=== PATIENT | female | born 1935 | race Caucasian/White ===

== ENCOUNTER 2017-05-19 08:51 | Outpatient (CLI) ==
[2016-03-08 16:08] VITALS: BMI 27.5
[2017-05-19] MEDS ORDERED: PROLIA SUBCUT STA (09:14)
[2017-05-19 09:22] VITALS: BP 106/63; TEMP 98.8
== END 2017-05-19 08:52 | disposition home or self-care (01) ==
LOC: OPMED 08:51
PROVIDERS: ATTEND Internal Medicine
DX: M81.0 Age-related osteoporosis without current pathological fracture (principal); Z98.1 Arthrodesis status
CPT/HCPCS: 96372

== ENCOUNTER 2017-11-16 08:43 | Outpatient (CLI) | payer OTHER ==
[2016-03-08 16:08] VITALS: BMI 27.5
[2017-11-16 09:15] VITALS: BP 118/66; TEMP 97.2
[2017-11-16] MEDS ORDERED: PROLIA SUBCUT STA (09:18)
== END 2017-11-16 08:44 | disposition home or self-care (01) ==
LOC: OPMED 08:43
PROVIDERS: ATTEND Internal Medicine
DX: M81.0 Age-related osteoporosis without current pathological fracture (principal); Z87.310 Personal history of (healed) osteoporosis fracture; Z98.1 Arthrodesis status
CPT/HCPCS: 96372

== ENCOUNTER 2017-12-20 09:27 | Inpatient (IN) | payer OTHER ==
[2017-12-20 10:25] VITALS: BMI 27.8
[2017-12-20] MEDS ORDERED: METHOCARBAMOL 750 MG PO SCH (11:30)
[2017-12-20] MEDS ORDERED: VITAMIN D3 PO SCH (11:30)
[2017-12-20] MEDS ORDERED: NON-FORMULARY MEDICATION (Multivitamin 1 TAB) PO SCH (11:30)
[2017-12-20] MEDS ORDERED: IRON PS COMPLEX PO SCH (11:30)
[2017-12-20] MEDS ORDERED: B12 PO SCH (11:30)
[2017-12-20] MEDS ORDERED: POTASSIUM CHLORIDE PO SCH (11:30)
[2017-12-20] MEDS ORDERED: ZOCOR PO SCH (11:30)
[2017-12-20] MEDS ORDERED: CHOLECALCIFEROL PO SCH (11:30)
[2017-12-20] MEDS ORDERED: FOLIC ACID PO SCH (11:30)
[2017-12-20] MEDS ORDERED: CALCIUM CARBONATE PO SCH (11:30)
[2017-12-20] MEDS ORDERED: [UNRECOGNIZED DRUG - OTHER] PO SCH (11:30)
[2017-12-20] MEDS ORDERED: ATROPINE SULFATE PFS IVP PRN (11:32)
[2017-12-20] MEDS ORDERED: MORPHINE 4 MG/ML VIAL IVP PRN (11:32)
[2017-12-20] MEDS ORDERED: VISTARIL INJ IM PRN (11:32)
[2017-12-20] MEDS ORDERED: NITROSTAT SL PRN (11:32)
[2017-12-20] MEDS ORDERED: TYLENOL PO PRN (11:32)
[2017-12-20] MEDS: ROBAXIN PO SCH ×3 (12:28→21:26)
[2017-12-20] MEDS: NEURONTIN PO SCH ×2 (12:29→21:26)
[2017-12-20] MEDS: NIFEREX 150 PO SCH (12:29)
[2017-12-20] MEDS: ANTIVERT PO SCH ×3 (12:30→21:25)
[2017-12-20] MEDS: ZOCOR PO SCH (12:30)
[2017-12-20] MEDS: VITAMIN D PO SCH (12:30)
[2017-12-20] MEDS: MULTIVITAMIN TABLET PO SCH (12:31)
[2017-12-20] MEDS: MICRO-K CAP PO SCH (12:31)
[2017-12-20] MEDS: CALCIUM 500 + VIT D 200 MG TABLET PO SCH (12:32)
[2017-12-20] MEDS: PERCOCET 10-325 PO SCH ×3 (12:38→21:25)
[2017-12-20] MEDS: XANAX PO SCH ×3 (12:38→21:25)
--- NOTE | 2017-12-20 14:19 | DI ---
EXAM: PA and lateral views of the chest HISTORY: Shortness of breath COMPARISON: None FINDINGS: The cardiomediastinal silhouette is normal. There is no pneumothorax or pleural effusion. There is no consolidation, nodule or mass. Lungs are mildly hyperinflated. The osseous structures demonstrate degenerative disease of the spine and interval placement of thoracic and upper lumbar sp ine posterior fusion hardware with a compression fracture at L1. IMPRESSION: 1. No acute consolidation with findings suggestive of chronic obstructive pulmonary disease/emphysem a. 2. Posterior fusion hardware in the lumbosacral spine with compression fracture at L1.
[2017-12-21] MEDS ORDERED: ASPIRIN EC PO SCH (08:00)
[2017-12-21] MEDS: NIFEREX 150 PO SCH (08:09)
[2017-12-21] MEDS: VITAMIN D PO SCH (08:09)
[2017-12-21] MEDS: XANAX PO SCH (08:10)
[2017-12-21] MEDS: MULTIVITAMIN TABLET PO SCH (08:10)
[2017-12-21] MEDS: ZOCOR PO SCH (08:10)
[2017-12-21] MEDS: NEURONTIN PO SCH (08:10)
[2017-12-21] MEDS: CALCIUM 500 + VIT D 200 MG TABLET PO SCH (08:10)
[2017-12-21] MEDS: MICRO-K CAP PO SCH (08:10)
[2017-12-21] MEDS: ANTIVERT PO SCH (08:10)
[2017-12-21] MEDS: ROBAXIN PO SCH (08:11)
[2017-12-21] MEDS: PERCOCET 10-325 PO SCH (08:11)
[2017-12-21] MEDS ORDERED: CARDIZEM PO ONE (10:20)
--- NOTE | 2017-12-21 10:26 | PCM.PROG ---
Attending Provider: ATTENDING PROVIDER: Dr. DANIA LE This patient is seen with Aminah Toussaint, Nurse Practitioner. DATE OF SERVICE: 12/21/17 SUBJECTIVE: This 82 year old WHITE/ F was hospitalized 12/20/17. The patient is lying in bed alert. She was brought in after episode of atrial fibrillation during colonoscopy yesterday. She has been in normal sinus rhythm. She was not experiencing any signs or symptoms of atrial fib. She reports she is feeling well and would like to go home today. REVIEW OF SYSTEMS: CONSTITUTIONAL: No night sweats. No fatigue, malaise, lethargy. No fever or chills. HEENT: Eyes: No visual changes. No eye pain. No eye discharge. ENT: No runny nose. No epistaxis. No sinus pain. No odynophagia. No congestion. RESPIRATORY: No cough, no congestion. No hemoptysis. No shortness of breath. CARDIOVASCULAR: No angina symptoms. No CHF symptoms. No atypical chest pain for CAD. No palpitations. No orthopnea.. GASTROINTESTINAL: No abdominal pain. No nausea or vomiting. No diarrhea or constipation. No hematemesis. No hematochezia. GENITOURINARY: No urgency. No frequency. No dysuria. No hematuria. No obstructive symptoms. No discharge. No pain. No significant abnormal bleeding. MUSCULOSKELETAL: No musculoskeletal pain; no joint swelling. NEUROLOGICAL: Awake, alert, oriented to time, place and person. No headache. No neck pain. No syncope. No seizures. No dizziness. PSYCHIATRIC: Not anxious. No depression. No suicidal thoughts. No homicidal thoughts. SKIN: No rash. No lesions. No wounds. ENDOCRINE: No unexplained weight loss. No weight gain. HEMATOLOGIC/LYMPHATIC: No anemia. No purpura. No petechiae. No prolonged or excessive bleeding. No palpable lymph nodes. PHYSICAL EXAMINATION: GENERAL: The patient is awake, alert and oriented, lying in bed in no distress. VITAL SIGNS: Temperature 98.6 F, Pulse 94, Respiratory Rate 14, BP 115/70, Pulse Ox 99% HEENT: Head normocephalic, atraumatic. Eyes: Extraocular muscles are intact. Pupils are equal, round and reactive to light and accommodation. Ears: No lesions. Nose appeared normal. Throat: No exudate or erythema. NECK: Supple. No JVD, no carotid bruit. No lymphadenopathy or thyromegaly. LUNGS: Diminished breath sounds. Clear to auscultation. Percussion note normal. Chest symmetrical. HEART: S1, S2, no S3. No murmurs. No cyanosis or clubbing. No ascites. Pulses: Dorsalis pedis and posterior tibial pulses +1 to +2 both sides. ABDOMEN: Soft. Non-tender. Bowel sounds active. No CVA tenderness. No mass felt. EXTREMITIES: No edema. Full range of motion of all extremities, equal. NEUROLOGIC: No focal deficit. Cranial nerves II through XII are grossly intact. No headache, no double vision or headache. SKIN: Not dry. Intact. Turgor-normal. LYMPHATIC: No palpable lymph nodes/no lymphedema. MUSCULOSKELETAL: Normal joints with no swelling. Muscle tone is normal. LAB REVIEW: 12/21/17 04:30 12/21/17 04:30 12/21/17 04:30: Sodium 139, Potassium 3.7, Chloride 111 H, Carbon Dioxide 22 L, Anion Gap 9.7, BUN 10, Creatinine 1.08, Estimated GFR (MDRD) 49.00, BUN/ Creatinine Ratio 9.25, Glucose 101, Calcium 8.5, Total Bilirubin 0.3, AST 22, ALT 15, Alkaline Phosphatase 50 L, Total Protein 6.2, Albumin 2.9 L, Globulin 3.3, Albumin/Globulin Ratio 0.88 12/21/17 04:30: WBC 6.41, RBC 3.35 L, Hgb 10.4 L, Hct 32.4 L, MCV 96.7, MCH 31.0 , MCHC 32.1, RDW Coeff of Alverto 15.5 H, Plt Count 200, Neutrophils % (Manual) 44.0 , Lymphocytes % (Manual) 41.0, Monocytes % (Manual) 9.0, Eosinophils % (Manual) 1.0, Reactive Lymphocytes 5.0, Anisocytosis Not present 12/20/17 19:47: Total Creatine Kinase 221, CK-MB (CK-2) 2.5, CK-MB (CK-2) % 1.20723, Troponin I 0.0360 12/20/17 11:45: Thyroxine (T4) 6.1 12/20/17 11:45: Sodium 140, Potassium 4.1, Chloride 110 H, Carbon Dioxide 23, Anion Gap 11.1, BUN 7, Creatinine 1.01, Estimated GFR (MDRD) 52.00, BUN/ Creatinine Ratio 6.93, Glucose 106, Calcium 9.0, Total Bilirubin 0.5, AST 29, ALT 18, Alkaline Phosphatase 55, Total Creatine Kinase 305, CK-MB (CK-2) 3.0, CK -MB (CK-2) % 0.71679, Troponin I 0.0420, Total Protein 7.2, Albumin 3.4, Globulin 3.8, Albumin/Globulin Ratio 0.89, TSH 0.945 12/20/17 11:45: WBC 6.62, RBC 3.78 L, Hgb 11.6 L, Hct 36.0 L, MCV 95.2, MCH 30.7 , MCHC 32.2, RDW Coeff of Alverto 15.5 H, Plt Count 241, Neutrophils % (Manual) 64.0 , Band Neutrophils % 1.0, Lymphocytes % (Manual) 23.0, Monocytes % (Manual) 10.0 , Eosinophils % (Manual) 1.0, Plt Morphology Comment Normal, Anisocytosis Not present, RBC Morph Comment Normal ASSESSMENT: 1. EPISODE OF ATRIAL FIBRILLATION WITH RVR 2. ANEMIA PLAN: 1. Echocardiogram 2. Holter monitor 3. Possible discharge Plan and coordination of the patient's care discussed in the presence of Residential Gas Heat Technician and nurse. CONDITION: Stable SCRIBED BY: SANDRITA REVELES Triage Register Nurse scribed while in presence of service performed by Dr. Le/Aminah Toussaint APRN on 12/21/17 ([id number])
[2017-12-21 13:49] VITALS: BP 132/69; TEMP 97.9
--- NOTE | 2017-12-22 09:45 | ECHO2D ---
Date of Exam: 12/21/17 Ordering Physician: DR. DANIA LE Room #: 108 Reason for Echo: NEW ONSET ATRIAL FIBRILLATION, EVAL LVEF M-Mode Normal Adult Results LV Dimensions Normal Adult Results AoV Opening excursions >1.6 >1.6 LVEDD-base- 3.5-5.8 4.3 Ao root dimensions 2.0-3.7 3.1 LVESD-base- 3.1-4.6 L. Atrium dimensions 1.9-3.8 5.0 Post. Wall thickness 0.8-1.1 1.0 IV septum (thickness) 0.7-1.2 1.0 Post. Wall excursion 0.72-1.3 NORMAL Septal motion NORMAL Systolic motion R. Ventricular cavity 1.5-2.0 NORMAL LVEF 60% 60% Paradoxical septal wall motion NORMAL 2-D : 2-D M Mode Echocardiogram was performed using apical four chamber and left parasternal long and short axis views. Mitral, tricuspid and aortic valves appear to be normal. Contractility of the left ventricle seems to be normal, so is the cavity size. Enlarged Left atrial cavity. Aortic root appears to be normal. There is no pericardial effusion. There is no thrombus noted in the left ventricular or left aortic cavity. No mitral valve prolapse noted. COLOR FLOW: Mild to moderate mitral regurgitation M-MODE: MV: NORMAL AV: NORMAL TV: NORMAL PV: CHAMBER SIZE: ENLARGED LEFT ATRIAL CAVITY WALL MOTION: NORMAL PERICARDIUM: NORMAL INTERPRETATION: 1. ENLARGED LEFT ATRIAL CAVITY 2. MILD TO MODERATE MITRAL REGURGITATION MTDD
--- NOTE | 2017-12-23 11:06 | HOLTER ---
PATIENT INFORMATION AND COMMENTS Attending Physician: DR. DANIA LE Indications: ELEVATED HEART RATE/POSSIBLE ATRIAL FIBRILLATION __ Patient Medications: XANAX, CALCIUM, NEURONTIN, ANTIVERT, ROBAXIN, MULTI VITAMIN, MITROSTAT, PERCOCET __ Pre-procedure Summary: Protocol: Standard Heart Rate Started: 12/21/171455 Minimum: 56 BPM Weight: 152 LBS Ended: 12/22/171455 Maximum: 150 BPM Height: 62" Duration: 24 HOURS Average: 72 BPM _ INTERPRETATIONS/OBSERVATIONS: 1. BASIC RHYTHM: SINUS, RATE 50 BPM TO 130 BPM, AVERAGE 70 BPM 2. FEW TO RARE PVC' AND PAC'S 3. FIVE SHORT RUNS OF ATRIAL FIBRILLATION / SVT (SHORT 3 TO 7 BEATS) 4. NO ST-T WAVE CHANGES FROM BASELINE 5. ACTIVITY LOG NOT MAINTAINED MTDD
--- NOTE | 2017-12-24 10:49 | HP ---
DATE OF SERVICE: 12/20/17 REASON FOR HOSPITALIZATION/HISTORY OF PRESENT ILLNESS: 82 year old white female hospitalized with atrial fibrillation with rapid ventricular response 130-140 per minute. The patient was having colonoscopy, she went through colonoscopy without any complications post colonoscopy I was asked to see the patient in the recovery room and I admitted her. The patient converted to sinus rhythm while she was in the recovery room. PAST MEDICAL HISTORY/PAST SURGICAL HISTORY: Chronic lung disease History of pneumothorax spontaneous Neuropathy Severe DJD spine Osteoporosis with kyphosis REVIEW OF SYSTEMS: CONSTITUTIONAL: No night sweats. Mild fatigue at times lately for past two weeks. No fever or chills. HEENT: Eyes: No visual changes. No eye pain. No eye discharge. ENT: No runny nose. No epistaxis. No sinus pain. No sore throat. No odynophagia. No ear pain. No congestion. RESPIRATORY: No cough, no congestion. No hemoptysis. No shortness of breath. CARDIOVASCULAR: No angina symptoms. No CHF symptoms. No atypical chest pain for CAD. No palpitations. No PND. No orthopnea. GASTROINTESTINAL: No abdominal pain. No nausea or vomiting. No diarrhea or constipation. No hematemesis. No hematochezia. GENITOURINARY: No urgency. No frequency. No dysuria. No hematuria. No obstructive symptoms. No discharge. No pain. No significant abnormal bleeding. MUSCULOSKELETAL: No musculoskeletal pain. No joint swelling. No arthritis. NEUROLOGICAL: No headache. No neck pain. No syncope. No seizures. No dizziness. PSYCHIATRIC: Not anxious. No depression. No suicidal thoughts. No homicidal thoughts. SKIN: No rash. No lesions. No wounds. ENDOCRINE: No unexplained weight loss. No weight gain. HEMATOLOGIC/LYMPHATIC: No anemia. No purpura. No petechiae. No prolonged or excessive bleeding. No palpable lymph nodes. PERSONAL/FAMILY/SOCIAL HISTORY: The patient is and lives by himself. The son lives with her temporarily. Nonsmoker. No alcohol abuse. MEDICATIONS: Xanax Cholecalciferol Meclizine Potassium Zocor Gabapentin Robaxin Oxycodone ALLERGIES: Codeine Ketorolac PHYSICAL EXAMINATION: GENERAL: The patient is VITAL SIGNS: Temperature 98.2, pulse 100 per minute, respiratory rate 14, blood pressure 115/80, pulse ox 99% on room air. HEENT: Head normocephalic, atraumatic. Eyes: Extraocular muscles are intact. Pupils are equal, round and reactive to light and accommodation. Ears: No lesions. Nose appeared normal. Throat: No exudate or erythema. NECK: Supple. No JVD, no carotid bruit. No lymphadenopathy or thyromegaly. LUNGS: Clear to auscultation. Percussion note normal. Chest symmetrical. HEART: S1, S2, no S3. No murmurs. No cyanosis or clubbing. No ascites. Pulses: Dorsalis pedis and posterior tibial pulses +1 to +2 bilaterally. ABDOMEN: Soft. Nontender. Bowel sounds active. No CVA tenderness. No mass felt. EXTREMITIES: No edema. Full range of motion of all extremities, equal. NEUROLOGIC: No focal deficit. Cranial nerves II through XII are grossly intact. No headache, no double vision or headache. SKIN: Not dry. Intact. Turgor - normal. LYMPHATIC: No palpable lymph nodes/no lymphedema. MUSCULOSKELETAL: Normal joints with no swelling. Muscle tone is normal. Kyphosis. ASSESSMENT: 1. Atrial fibrillation with rapid ventricular response 2. Chronic lung disease 3. Chronic anemia 4. Severe osteoporosis 5. Kyphosis 6. Scoliosis 7. Generalized osteoarthritis 8. Neuropathy PLAN: 1. Monitor the patient 2. Do echocardiogram 3. IV fluids 4. Telemetry 5. Rule out acute marker event 6. Complications of atrial fibrillation discussed in detail. The patient is very reluctant to take any blood thinner or any more medications. Will monitor this. TIME SPENT: More than 70 minutes. [facility]
--- NOTE | 2017-12-24 11:00 | DS ---
DATE OF SERVICE: 12/21/17 FINAL DIAGNOSIS: 1. Atrial fibrillation with rapid ventricular response, resolved it's paroxysmal the patient is in sinus 2. Severe chronic lung disease with history of pneumothorax spontaneous several years ago 3. Generalized osteoporosis 4. Osteoarthritis 5. Kyphosis 6. Neuropathy DISCHARGE INSTRUCTIONS: Discharge the patient home. Continue all the medication as before. MEDICATIONS AT DISCHARGE: Zocor Potassium Multivitamin Antivert Vitamin D Xanax Calcium Neurontin Robaxin Percocet Iferex NEW PRESCRIPTIONS: Cardizem 60mg twice a day DIET INSTRUCTIONS: Regular ACTIVITY: As tolerated SMOKING: N/A DISEASE SPECIFIC EDUCATION: New medication Atrial fibrillation Holter Monitor HOSPITAL COURSE: 81 year old white female hospitalized with atrial fibrillation with rapid ventricular response. The patient underwent echocardiogram which showed enlarged left atrial cavity which was 4.8cm, normal mitral valve, normal valvular structures. LV contractility was normal. The patient stayed in sinus rhythm throughout the stay in the hospital except for in recovery room on admission. The patient was explained about paroxysmal atrial fibrillation and strongly advised to have Holter Monitor to which she agreed. She declined to take anymore blood thinners or even consider it. The patient's CHADS score is 3. She will undergo Holter Monitor. The patient seems to have sinus rhythm most of the time. She is advised to quit coffee, caffeine and chocolate. Atrial fibrillation complication discussed. Complications of Novel blood thinners and Coumadin discussed. She is very reluctant and almost declined to even consider them. The patient is to be seen in 2-3 days on followup. CONDITION: Stable. TIME SPENT: More than 60 minutes. MTDD
--- NOTE | 2017-12-24 11:01 | PN ---
12/20/17: Level 5 12/21/17: D as in discharge MTDD
--- NOTE | 2017-12-24 11:47 | PN ---
DATE OF SERVICE: 12/20/17 ADMIT NOTE SUBJECTIVE: 82 year old white female had colonoscopy done and the patient had atrial fibrillation with rapid ventricular response. She tolerated the procedure well. The patient was seen in the recovery room where she was noted to be going in and out of sinus rhythm and atrial fibrillation but later on she stayed into sinus rhythm. The patient has severe chronic lung disease with history of pneumothorax in the past several years ago. REVIEW OF SYSTEMS: CONSTITUTIONAL: No night sweats. Fatigue and weakness lately. No fever or chills. HEENT: Eyes: No visual changes. No eye pain. No eye discharge. ENT: No runny nose. No epistaxis. No sinus pain. No sore throat. No odynophagia. No congestion. RESPIRATORY: No cough, no congestion. No hemoptysis. No shortness of breath. CARDIOVASCULAR: No angina symptoms. No CHF symptoms. No atypical chest pain for CAD. No palpitations. No orthopnea. GASTROINTESTINAL: No abdominal pain. No nausea or vomiting. No diarrhea or constipation. No hematemesis. No hematochezia. GENITOURINARY: No urgency. No frequency. No dysuria. No hematuria. No obstructive symptoms. No discharge. No pain. No significant abnormal bleeding. MUSCULOSKELETAL: No musculoskeletal pain; no joint swelling. NEUROLOGICAL: No headache. No neck pain. No syncope. No seizures. No dizziness. PSYCHIATRIC: Not anxious. No depression. No suicidal thoughts. No homicidal thoughts. SKIN: No rash. No lesions. No wounds. ENDOCRINE: No unexplained weight loss. No weight gain. HEMATOLOGIC/LYMPHATIC: No anemia. No purpura. No petechiae. No prolonged or excessive bleeding. No palpable lymph nodes. PHYSICAL EXAMINATION: GENERAL: The patient is oriented to time, place and person. VITAL SIGNS: Blood pressure 136/82 and pulse 80 per minute, respiratory rate 15. HEENT: Head normocephalic, atraumatic. Eyes: Extraocular muscles are intact. Pupils are equal, round and reactive to light and accommodation. Ears: No lesions. Nose appeared normal. Throat: No exudate or erythema. NECK: Supple. No JVD, no carotid bruit. No lymphadenopathy or thyromegaly. LUNGS: Decreased breath sounds but Clear to auscultation. Percussion note normal. Chest symmetrical. HEART: S1, S2, no S3. No murmurs. No cyanosis or clubbing. No ascites. Pulses: Dorsalis pedis and posterior tibial pulses +1 to +2 both sides. ABDOMEN: Soft. Nontender. Bowel sounds active. No CVA tenderness. No mass felt. EXTREMITIES: No edema. Full range of motion of all extremities, equal. NEUROLOGIC: No focal deficit. Cranial nerves II through XII are grossly intact. No headache, no double vision or headache. SKIN: Not dry. Intact. Turgor - normal. LYMPHATIC: No palpable lymph nodes/no lymphedema. MUSCULOSKELETAL: Normal joints with no swelling. Muscle tone is normal. ASSESSMENT: 1. Paroxysmal atrial fibrillation/flutter we don't know how long she has during the 24 hours period. Try to determine that and decided whether the patient needs to be on Novel blood thinners or not. PLAN: 1. Will do echocardiogram to evaluate LV function and valvular structure 2. We may put the patient on Cardizem to control the rate 3. T4 TSH 4. Routine cardiac markers to rule out any acute marker event CONDITION: Stable TIME SPENT: More than 30 minutes. Plan and coordination of the patient's care discussed in the presence of nurse. DON
== END 2017-12-21 15:05 | disposition home or self-care (01) | DRG 206 ==
LOC: MEDSURG A 09:27
PROVIDERS: ADMIT Internal Medicine; ATTEND Internal Medicine
DX: J98.4 Other disorders of lung (principal); M81.0 Age-related osteoporosis without current pathological fracture; M40.209 Unspecified kyphosis, site unspecified; G62.9 Polyneuropathy, unspecified; M47.9 Spondylosis, unspecified; D64.9 Anemia, unspecified; M41.9 Scoliosis, unspecified
CPT/HCPCS: 36415; 80053; 82550; 82553; 84436; 84443; 84484; 85007; 85025; 93005; 93010; 93227

== ENCOUNTER → 2017-12-20 | Day surgery (SDC) ==
[2016-03-08 16:08] VITALS: BMI 27.5
[~2017-12-20] MED LIST: BREVIBLOC ONE; DIPRIVAN 20 ML VIAL IVP ONE; LIDOCAINE 1% 20 ML MDV ID STA; VERSED ONE
[2017-12-20 07:06] VITALS: TEMP 97.6
[2017-12-20 16:10] VITALS: BP 100/69
--- NOTE | 2017-12-21 08:42 | OP ---
PROCEDURE: COLONOSCOPY TO THE CECUM WITH SNARE POLYPECTOMY. ENDOSCOPIST: Padilla ANDRADE M.D. INDICATION: HISTORY OF POLYPS INSTRUMENT: PC-190. MEDICATION: PER ANESTHESIA. PROCEDURE: The patient was positioned for colonoscopy. The digital rectal exam was negative. The colonoscope was inserted through the anus and advanced to the cecum. The cecum was identified using the ileocecal valve and the appendiceal orifice as landmarks. The scope was slowly withdrawn through an adequately prepped colon. The ink was identified in the transverse colon there was no evidence for residual polyps. I small polyp at 60cm removed using snare cautery. No other abnormalities were noted. The retroflex exam was otherwise negative. The patient tolerated the the procedure well without immediate complication. Withdraw time 11 minutes and 30 seconds. PLAN: 1. Repeat colonoscopy in 3 years. DON
== END ==
LOC: SURG 06:42
PROVIDERS: ATTEND Internal Medicine Gastroenterology
DX: Z86.010 Personal history of colon polyps (principal); D12.6 Benign neoplasm of colon, unspecified
CPT/HCPCS: 93005; 93010

== ENCOUNTER 2018-05-20 09:05 | Outpatient (CLI) | payer OTHER ==
[2018-05-20 09:25] VITALS: BP 119/62; TEMP 98.2
[2018-05-20] MEDS ORDERED: PROLIA SUBCUT STA (09:25)
== END 2018-05-20 09:06 | disposition home or self-care (01) ==
LOC: OPMED 09:05
PROVIDERS: ATTEND Internal Medicine
DX: M81.0 Age-related osteoporosis without current pathological fracture (principal)

== ENCOUNTER 2018-07-01 11:16 | Inpatient (IN) ==
[2018-07-01] MEDS ORDERED: TYLENOL PO PRN (11:41)
[2018-07-01] MEDS ORDERED: VISTARIL INJ IM PRN (11:41)
[2018-07-01] MEDS ORDERED: NITROSTAT SL PRN (11:41)
[2018-07-01] MEDS ORDERED: ATROPINE SULFATE PFS IVP PRN (11:41)
[2018-07-01] MEDS ORDERED: DECADRON 4 MG/ML SDV IM STA (12:02)
[2018-07-01 12:47] VITALS: BMI 25.9
[2018-07-01] MEDS: ROCEPHIN 1 GM in SODIUM CHLORIDE 50 ML IV SCH (13:49)
[2018-07-01] MEDS: CARDIZEM PO SCH ×2 (13:51→21:02)
[2018-07-01] MEDS: CORDARONE PO SCH ×2 (13:51→21:02)
--- NOTE | 2018-07-01 14:20 | DI ---
EXAM: CHEST FRONTAL VIEW HISTORY: Exertional shortness of breath. COMPARISON: 12/20/2017 FINDINGS: Prominent heart size is stable. Atherosclerotic disease. There is mild central vascular congestion. No lobar consolidation, visible pleural fluid or pneumothorax. IMPRESSION: 1. Mild cardiomegaly and subtle vascular congestion. Atherosclerosis.
[2018-07-01] MEDS ORDERED: LANOXIN IVP STA ×2 (14:29→16:05)
[2018-07-01] MEDS ORDERED: METHOCARBAMOL 750 MG PO SCH (15:00)
[2018-07-01] MEDS: XOPENEX 1.25 MG NEB SCH ×2 (15:00→20:10)
[2018-07-01] MEDS ORDERED: PERCOCET 10-325 PO SCH (15:00)
[2018-07-01] MEDS: XANAX PO SCH ×2 (15:50→21:02)
[2018-07-01] MEDS: ROBAXIN PO SCH ×2 (15:51→21:03)
[2018-07-01] MEDS: PERCOCET 5-325 PO SCH ×2 (15:51→21:02)
[2018-07-01] MEDS ORDERED: LASIX IVP STA (15:52)
[2018-07-01] MEDS ORDERED: CARDIZEM PO ONE (16:06)
[2018-07-01] MEDS: NEURONTIN PO SCH (21:02)
[2018-07-01] MEDS: ELIQUIS PO SCH (21:02)
[2018-07-01] MEDS: ZOCOR PO SCH (21:02)
[2018-07-01] MEDS: COLACE PO SCH (21:02)
[2018-07-02] MEDS: XOPENEX 1.25 MG NEB SCH ×3 (05:05→20:40)
[2018-07-02] MEDS: PROTONIX PO SCH (06:14)
[2018-07-02] MEDS: LASIX IVP SCH (06:14)
[2018-07-02] MEDS: CORDARONE PO SCH ×3 (06:14→21:02)
[2018-07-02] MEDS: ROCEPHIN 1 GM in SODIUM CHLORIDE 50 ML IV SCH (08:42)
[2018-07-02] MEDS: NEURONTIN PO SCH ×2 (08:42→21:02)
[2018-07-02] MEDS: XANAX PO SCH ×3 (08:43→21:02)
[2018-07-02] MEDS: CARDIZEM PO SCH ×3 (08:43→21:03)
[2018-07-02] MEDS: PERCOCET 5-325 PO SCH ×3 (08:43→21:03)
[2018-07-02] MEDS: ROBAXIN PO SCH ×3 (08:43→21:02)
[2018-07-02] MEDS: ASPIRIN EC PO SCH (08:43)
[2018-07-02] MEDS: ELIQUIS PO SCH ×2 (08:44→21:05)
[2018-07-02] MEDS ORDERED: LANOXIN IVP STA (11:29)
[2018-07-02] MEDS ORDERED: CARDIZEM PO ONE (11:31)
[2018-07-02] MEDS ORDERED: CARDIZEM PO SCH (21:00)
[2018-07-02] MEDS: COLACE PO SCH (21:01)
[2018-07-02] MEDS: ZOCOR PO SCH (21:02)
[2018-07-03] MEDS: XOPENEX 1.25 MG NEB SCH ×3 (05:00→20:20)
[2018-07-03] MEDS: PROTONIX PO SCH (05:40)
[2018-07-03] MEDS: LASIX IVP SCH (05:40)
[2018-07-03] MEDS: CORDARONE PO SCH ×3 (05:40→20:56)
[2018-07-03] MEDS ORDERED: K-DUR PO SCH (08:00)
[2018-07-03] MEDS: PERCOCET 5-325 PO SCH ×3 (08:31→20:56)
[2018-07-03] MEDS: ROCEPHIN 1 GM in SODIUM CHLORIDE 50 ML IV SCH (08:31)
[2018-07-03] MEDS: ASPIRIN EC PO SCH (08:31)
[2018-07-03] MEDS: XANAX PO SCH ×3 (08:32→20:53)
[2018-07-03] MEDS: ROBAXIN PO SCH ×3 (08:32→20:56)
[2018-07-03] MEDS: CARDIZEM PO SCH ×4 (08:32→20:55)
[2018-07-03] MEDS: NEURONTIN PO SCH ×2 (08:32→20:55)
[2018-07-03] MEDS: ELIQUIS PO SCH ×2 (08:32→20:57)
[2018-07-03] MEDS ORDERED: LANOXIN IVP STA (09:33)
[2018-07-03] MEDS ORDERED: K-DUR ONE (13:17)
[2018-07-03] MEDS: K-DUR PO SCH ×3 (13:20→20:53)
[2018-07-03] MEDS: COLACE PO SCH (20:53)
[2018-07-03] MEDS: ZOCOR PO SCH (20:54)
[2018-07-04] MEDS: XOPENEX 1.25 MG NEB SCH ×2 (05:20→14:50)
[2018-07-04] MEDS: PROTONIX PO SCH (05:55)
[2018-07-04] MEDS: CORDARONE PO SCH ×2 (05:55→14:54)
[2018-07-04] MEDS: LASIX IVP SCH (05:56)
[2018-07-04] MEDS ORDERED: K-DUR PO SCH (08:00)
[2018-07-04] MEDS: NEURONTIN PO SCH (09:46)
[2018-07-04] MEDS: CARDIZEM PO SCH ×2 (09:46→09:47)
[2018-07-04] MEDS: ROCEPHIN 1 GM in SODIUM CHLORIDE 50 ML IV SCH (09:46)
[2018-07-04] MEDS: PERCOCET 5-325 PO SCH ×2 (09:46→15:50)
[2018-07-04] MEDS: ELIQUIS PO SCH (09:47)
[2018-07-04] MEDS: XANAX PO SCH ×2 (09:47→15:50)
[2018-07-04] MEDS: ROBAXIN PO SCH ×2 (09:56→15:49)
--- NOTE | 2018-07-04 11:03 | PCM.PROG ---
Attending Provider: ATTENDING PROVIDER: Dr. DANIA LE This patient is seen with Aminah Toussaint, Nurse Practitioner. DATE OF SERVICE: 07/04/18 SUBJECTIVE: This 82 year old WHITE/ F was hospitalized 07/01/18. The patient is lying in bed resting comfortably. Heart rate improving. she is asymptomatic. lowest heart rate at night bp under control agreed to go home on eliquis REVIEW OF SYSTEMS: CONSTITUTIONAL: No night sweats. No fatigue, malaise, lethargy. No fever or chills. HEENT: Eyes: No visual changes. No eye pain. No eye discharge. ENT: No runny nose. No epistaxis. No sinus pain. No odynophagia. No congestion. RESPIRATORY: Cough. No congestion. No hemoptysis. No shortness of breath. CARDIOVASCULAR: Positive for palpitations. No angina symptoms. No CHF symptoms. No atypical chest pain for CAD. No orthopnea. GASTROINTESTINAL: No abdominal pain. No nausea or vomiting. No diarrhea or constipation. No hematemesis. No hematochezia. GENITOURINARY: No urgency. No frequency. No dysuria. No hematuria. No obstructive symptoms. No discharge. No pain. No significant abnormal bleeding. MUSCULOSKELETAL: No musculoskeletal pain; no joint swelling. NEUROLOGICAL: Awake, alert, oriented to time, place and person. No headache. No neck pain. No syncope. No seizures. No dizziness. PSYCHIATRIC: Not anxious. No depression. No suicidal thoughts. No homicidal thoughts. SKIN: No rash. No lesions. No wounds. ENDOCRINE: No unexplained weight loss. No weight gain. HEMATOLOGIC/LYMPHATIC: No anemia. No purpura. No petechiae. No prolonged or excessive bleeding. No palpable lymph nodes. PHYSICAL EXAMINATION: GENERAL: The patient is awake, alert and oriented, lying/sitting in bed in no distress. VITAL SIGNS: Temperature 99 F, Pulse 125, Respiratory Rate 18, BP 116/64, Pulse Ox 92% HEENT: Head normocephalic, atraumatic. Eyes: Extraocular muscles are intact. Pupils are equal, round and reactive to light and accommodation. Ears: No lesions. Nose appeared normal. Throat: No exudate or erythema. NECK: Supple. No JVD, no carotid bruit. No lymphadenopathy or thyromegaly. LUNGS: Decreased breath sounds. Clear to auscultation. Percussion note normal. Chest symmetrical. HEART: Irregular heart rate. S1, S2, no S3. No murmurs. No cyanosis or clubbing. No ascites. Pulses: Dorsalis pedis and posterior tibial pulses +1 to +2 both sides. ABDOMEN: Soft. Non-tender. Bowel sounds active. No CVA tenderness. No mass felt. EXTREMITIES: No edema. Full range of motion of all extremities, equal. NEUROLOGIC: No focal deficit. Cranial nerves II through XII are grossly intact. No headache, no double vision or headache. SKIN: Not dry. Intact. Turgor-normal. LYMPHATIC: No palpable lymph nodes/no lymphedema. MUSCULOSKELETAL: Normal joints with no swelling. Muscle tone is normal. LAB REVIEW: 07/04/18 04:30 07/04/18 04:30 07/04/18 04:30: Digoxin 1.70 07/04/18 04:30: Sodium 136.9, Potassium 4.32, Chloride 103.1, Carbon Dioxide 28.9, Anion Gap 9.22, BUN 13.9, Creatinine 1.15, Estimated GFR (MDRD) 45.00, BUN /Creatinine Ratio 12.08, Glucose 91.7, Calcium 8.61, Total Bilirubin 0.45, AST 45.6 H, ALT 27.4, Alkaline Phosphatase 54.6, Total Protein 6.87, Albumin 3.62, Globulin 3.25, Albumin/Globulin Ratio 1.11 07/04/18 04:30: WBC 7.77, RBC 3.49 L, Hgb 10.9 L, Hct 34.5 L, MCV 98.9, MCH 31.2 H, MCHC 31.6 L, RDW Coeff of Alverto 14.1, Plt Count 267, Immature Gran % (Auto ) 0.3, Neut % (Auto) 51.0, Lymph % (Auto) 30.1, [place] % (Auto) 11.7 H, Eos % ( Auto) 6.0, Baso % (Auto) 0.9, Immature Gran # (Auto) 0.0, Neut # (Auto) 4.0, Lymph # (Auto) 2.3, [place] # (Auto) 0.9, Eos # (Auto) 0.5, Baso # (Auto) 0.1 ASSESSMENT: 1. Atrial fibrillation/atrial flutter, rate controlled. 2. Dizziness improved. 3. COPD. 4. History of CVA. PLAN: 1. Echocardiogram 2. D/C home 3. Amiodarone 200 mg b.i.d. 4. Cardizem 90 mg b.i.d. 5. Lanoxin 0.125 mg daily 6. Eliquis 5 mg b.i.d. 7. Will see the patient in the office on Wednesday morning 8. The risk of bleeding associated with Eliquis discussed with the patient. The patient is to take no other NSAIDs. Verbalized understanding. Plan and coordination of the patient's care discussed in the presence of Barrel Marker and nurse. CONDITION: Stable SCRIBED BY: SANDRITA REVELES Clutch Operator scribed while in presence of service performed by Dr. Le/Aminah Toussaint APRN on 07/04/18 ([id number])
--- NOTE | 2018-07-04 14:56 | US ---
Exam: Kendall-scale and color duplex Doppler ultrasonographic evaluation of the carotid arteries. Spec tral waveform analysis. Comparison: None available. Reason for exam: Dizziness. FINDINGS: There is a small amount of atheromatous plaque in the proximal internal carotid artery at the level of the bulb. Right ECA measures 0.7 meters per second Right CCA measures 0.8 meters per second Right internal carotid artery peak systolic velocity measures 0.6 meters per second Right internal carotid artery/CCA PSV ratio measures 0.7 Right internal carotid artery end-diastolic velocity measures 0.2 meters per second There is normal antegrade right vertebral artery flow. Left ECA measures 0.9 meters per second There is a small to moderate amount of atheromatous plaque seen in the proximal internal carotid rocky ry at the level of the bulb. Left CCA measures 0.5 meters per second Left internal carotid artery peak systolic velocity measures 0.8 meters per second Left internal carotid artery/CCA PSV ratio 1.6 Left internal carotid artery end-diastolic velocity of 0.3. There is normal antegrade left vertebral artery flow. Tortuosity is noted. The left internal carotid artery. Impression: No significant stenotic disease is seen by peak systolic velocity measurements in the right or left i nternal carotid arteries.
[2018-07-04 15:07] VITALS: BP 103/50; TEMP 99.4
--- NOTE | 2018-07-06 07:42 | PN ---
DATE OF SERVICE: 07/02/18 SUBJECTIVE: The patient is doing well, no palpitation. Rate has slowed to 90-110 per minute. We will increase the dose of Cardizem to twice a day and given Lanoxin IV. Education carried about atrial fibrillation, complication. Eliquis and complication like intracranial bleed, GI bleed and no use of non-steroidal anti- inflammatory discussed. REVIEW OF SYSTEMS: CONSTITUTIONAL: No night sweats. No fatigue, malaise, lethargy. No fever or chills. HEENT: Eyes: No visual changes. No eye pain. No eye discharge. ENT: No runny nose. No epistaxis. No sinus pain. No sore throat. No odynophagia. No congestion. RESPIRATORY: No cough, no congestion. No hemoptysis. No shortness of breath. CARDIOVASCULAR: No angina symptoms. No CHF symptoms. No atypical chest pain for CAD. No palpitations. No orthopnea. GASTROINTESTINAL: No abdominal pain. No nausea or vomiting. No diarrhea or constipation. No hematemesis. No hematochezia. GENITOURINARY: No urgency. No frequency. No dysuria. No hematuria. No obstructive symptoms. No discharge. No pain. No significant abnormal bleeding. MUSCULOSKELETAL: No musculoskeletal pain; no joint swelling. NEUROLOGICAL: No headache. No neck pain. No syncope. No seizures. No dizziness. PSYCHIATRIC: Not anxious. No depression. No suicidal thoughts. No homicidal thoughts. SKIN: No rash. No lesions. No wounds. ENDOCRINE: No unexplained weight loss. No weight gain. HEMATOLOGIC/LYMPHATIC: No anemia. No purpura. No petechiae. No prolonged or excessive bleeding. No palpable lymph nodes. PHYSICAL EXAMINATION: HEENT: Head normocephalic, atraumatic. Eyes: Extraocular muscles are intact. Pupils are equal, round and reactive to light and accommodation. Ears: No lesions. Nose appeared normal. Throat: No exudate or erythema. NECK: Supple. No JVD, no carotid bruit. No lymphadenopathy or thyromegaly. LUNGS: Decreased breath sounds but clear to auscultation. Percussion note normal. Chest symmetrical. HEART: S1, S2, no S3. No murmurs. No cyanosis or clubbing. No ascites. Pulses: Dorsalis pedis and posterior tibial pulses +1 to +2 both sides. ABDOMEN: Soft. Nontender. Bowel sounds active. No CVA tenderness. No mass felt. EXTREMITIES: No edema. Full range of motion of all extremities, equal. NEUROLOGIC: No focal deficit. Cranial nerves II through XII are grossly intact. No headache, no double vision or headache. SKIN: Not dry. Intact. Turgor - normal. LYMPHATIC: No palpable lymph nodes/no lymphedema. MUSCULOSKELETAL: Normal joints with no swelling. Muscle tone is normal. ASSESSMENT: 1. Atrial fibrillation, seems to be slowing down ventricular response combination of Lanoxin and Cardizem. PLAN: 1. Systolic blood pressure has to be monitored because it's borderline and can not push Cardizem more, may have to use Lanoxin. 2. The patient is already on Amiodarone for possibility that patient has pulmonary vascular congestion. 3. Lasix has been given with no symptoms of CHF noted and all this discussed with the patient with the medications. She is hardly interested, she wants to go home. TIME SPENT: More than 30 minutes. Plan and coordination of the patient's care discussed in the presence of nurse. DON
--- NOTE | 2018-07-06 07:51 | PN ---
DATE OF SERVICE: 07/03/18 SUBJECTIVE: The patient was seen and examined today. The patient's condition it slowly improving. She wants to go home. Atrial fibrillation discussed with complications. CHADS II VASC score is more than 3. Isabelquradha discussed with complications like intracranial and GI bleed. No nonsteroidal anti-inflammatory again explained to her. REVIEW OF SYSTEMS: CONSTITUTIONAL: No night sweats. No fatigue, malaise, lethargy. No fever or chills. HEENT: Eyes: No visual changes. No eye pain. No eye discharge. ENT: No runny nose. No epistaxis. No sinus pain. No sore throat. No odynophagia. No congestion. RESPIRATORY: No cough, no congestion. No hemoptysis. No shortness of breath. CARDIOVASCULAR: No angina symptoms. No CHF symptoms. No atypical chest pain for CAD. No palpitations. No orthopnea. GASTROINTESTINAL: No abdominal pain. No nausea or vomiting. No diarrhea or constipation. No hematemesis. No hematochezia. GENITOURINARY: No urgency. No frequency. No dysuria. No hematuria. No obstructive symptoms. No discharge. No pain. No significant abnormal bleeding. MUSCULOSKELETAL: No musculoskeletal pain; no joint swelling. NEUROLOGICAL: No headache. No neck pain. No syncope. No seizures. No dizziness. PSYCHIATRIC: Not anxious. No depression. No suicidal thoughts. No homicidal thoughts. SKIN: No rash. No lesions. No wounds. ENDOCRINE: No unexplained weight loss. No weight gain. HEMATOLOGIC/LYMPHATIC: No anemia. No purpura. No petechiae. No prolonged or excessive bleeding. No palpable lymph nodes. PHYSICAL EXAMINATION: HEENT: Head normocephalic, atraumatic. Eyes: Extraocular muscles are intact. Pupils are equal, round and reactive to light and accommodation. Ears: No lesions. Nose appeared normal. Throat: No exudate or erythema. NECK: Supple. No JVD, no carotid bruit. No lymphadenopathy or thyromegaly. LUNGS: Decreased breath sounds. Clear to auscultation. Percussion note normal. Chest symmetrical. HEART: S1, S2, no S3. No murmurs. No cyanosis or clubbing. No ascites. Pulses: Dorsalis pedis and posterior tibial pulses +1 to +2 both sides. ABDOMEN: Soft. Nontender. Bowel sounds active. No CVA tenderness. No mass felt. EXTREMITIES: No edema. Full range of motion of all extremities, equal. NEUROLOGIC: No focal deficit. Cranial nerves II through XII are grossly intact. No headache, no double vision or headache. SKIN: Not dry. Intact. Turgor - normal. LYMPHATIC: No palpable lymph nodes/no lymphedema. MUSCULOSKELETAL: Normal joints with no swelling. Muscle tone is normal. ASSESSMENT: 1. Atrial fibrillation PLAN: 1. The patient needs to have echo done to make sure patient's atrial fibrillation is nonvalvular and also evaluate LV function. The patient's heart rate is 100 per minute average. 2. Will push Lanoxin 0.25mg this morning. 3. Cardizem 90mg twice a day systolic blood pressure around 100. TIME SPENT: More than 30 minutes. MEDICAL CONDITION: Stable. Plan and coordination of the patient's care discussed in the presence of nurse. DON
--- NOTE | 2018-07-07 13:18 | HP ---
DATE OF SERVICE: 07/01/18 REASON FOR HOSPITALIZATION/HISTORY OF PRESENT ILLNESS: Dizzy times two to three weeks, worse in the mornings. The patient has has sinus drainage. Palpitations x 2week . History of atrial fibrillation. PAST MEDICAL HISTORY: Atrial fibrillation-new onset Chronic kidney disease 2-3 Hyperglycemia Osteoporosis COPD DJD DANAE GERD PAST SURGICAL HISTORY: Hysterectomy Hemorrhoids Hernia Back surgery Gallbladder Stomach ulcer Colonoscopy REVIEW OF SYSTEMS: CONSTITUTIONAL: No fever. Fatigue. HEENT: Sinus drainage, no sore throat. RESPIRATORY: Cough with yellow sputum, no congestion. CARDIOVASCULAR: No atypical chest pain for coronary artery disease. No angina , CHF symptoms. Palpitations and shortness of breath. Dizziness. GASTROINTESTINAL: No melena or abdominal pain. No GERD. GENITOURINARY: No hematuria, no prostatism, no polyuria. LEGAL RESEARCH ANALYST: No blackout, no dizziness, no headache, no double vision. MUSCULOSKELETAL: Osteoarthritis pain, no joint swelling. ENDOCRINE: No weight loss, no weight gain. SKIN: Not dry, no rash. PSYCHIATRIC: Not anxious, no depression, no suicidal thoughts, no homicidal thoughts. SOCIAL HISTORY: Marital Status: . Alcohol Usage: No. Tobacco Usage: Quit. FAMILY HISTORY: Father Mother Brother 5 Sister 5 MEDICATIONS: Xanax 0.5mg three times a day Simvastatin 40mg PO daily Vitamin D OTC daily Calcium OTC daily Neurontin 300mg PO twice a day Protonix 40mg PO daily Over the counter Potassium 90mg daily Robaxin 750mg one three times a day Percocet 5-325mg three times a day Prolia Q 6 months Meclizine 25mg three times a day Iron PS complex cap Colace 100mg QHS Tylenol Arthritis 650mg two at HS PRN ALLERGIES: Codeine Cardizem PHYSICAL EXAMINATION: V/S: Pulse 70, blood pressure 132/88, pulse ox 97%, Height 5'3, weight 147.2 and BMI 26.1. GENERAL APPEARANCE: Oriented times three. HEENT: Yellow drainage. NECK: No JVP, no bruits. RESPIRATORY: Decreased breath sounds. CARDIOVASCULAR: S1, S2, no S3, no murmurs. No cyanosis, clubbing. No ascites. Rapid rate >150 per minute GI/ABDOMEN: No tenderness. Bowel sounds are active. EXTREMITIES: edema, pulses +1, equal. LEGAL RESEARCH ANALYST: Deep tendon reflexes, sensory, motor and gait all normal. RECTAL: Colonoscopy Dr. Narayanan 01/12/PELVIC: 11/07 Refused repeat, Hysterectomy . ASSESSMENT: 1. Dizziness 2. Acute sinusitis 3. Atrial fibrillation with RVR/ 4. Leg cramps at HS 5. Chronic kidney disease 2-3 6. Hyperglycemia 12-28-17 A1c (5.8) 7. Osteoporosis-Prolia May 20 due October 2018 8. History of atrial fibrillation episode 9. Kyphoplasty 10.COPD 11.DJD , Dr. Richard 12.GERD 13.DANAE 14.Dyslipidemia 15.Osteoarthritis, knee 16.Restless leg syndrome 17.Cervical radiculopathy 18.muscle spasms 19.History of Hypoxia PLAN: 1. Admit 2. Routine telemetry orders 3. Cardizem 60mg PO twice a day once now 4. Amiodarone 200mg PO 8 hourly 5. Continue Xanax, Simvastatin, Neurontin, Robaxin, Percocet 6. T4 TSH 7. ABGS 8. Eliquis 5mg Po twice a day 9. PFT 10.1cc Decadron IM one time 11.Chest x-ray (on telemetry orders now) 12.Xopenex NEBS three times a day scheduled 13.Rocephin 1gram IV daily TIME SPENT: More than 70 minutes. MTDD
--- NOTE | 2018-07-08 09:57 | ECHO2D ---
Date of Exam: 07/04/18 Ordering Physician: DR. DANIA LE Room #: 103 Reason for Echo: ATRIAL FIB/ATRIAL FLUTTER WITH RAPID HEART RATE, DIZZINESS M-Mode Normal Adult Results LV Dimensions Normal Adult Results AoV Opening excursions >1.6 >1.6 LVEDD-base- 3.5-5.8 4.0 Ao root dimensions 2.0-3.7 2.8 LVESD-base- 3.1-4.6 L. Atrium dimensions 1.9-3.8 4.9 Post. Wall thickness 0.8-1.1 0.9 IV septum (thickness) 0.7-1.2 1.0 Post. Wall excursion 0.72-1.3 NORMAL Septal motion NORMAL Systolic motion R. Ventricular cavity 1.5-2.0 NORMAL LVEF 60% 63% Paradoxical septal wall motion NORMAL 2-D : ENLARGED LEFT ATRIAL CAVITY, NORMAL LEFT VENTRICULAR CONTRACTILITY, NORMAL VALVES, NO EFFUSION, NO THROMBUS M-MODE: MV: NORMAL AV: NORMAL TV: NORMAL PV: CHAMBER SIZE: ENLARGED LEFT ATRIAL CAVITY WALL MOTION: NORMAL PERICARDIUM: NORMAL INTERPRETATION: 1. ENLARGED LEFT ATRIAL CAVITY ( 4.9CM) 2. NORMAL LEFT VENTRICULAR CONTRACTILITY 3. MODERATE TRICUSPID REGURGITATION, MILD TO MODERATE MITRAL REGURGITATION MTDD
--- NOTE | 2018-07-08 12:44 | PN ---
DATE OF SERVICE: 07/04/18 SUBJECTIVE: She was seen and examined with the nurse practitioner. The patient will be discharged home. Atrial fibrillation discussed with complications. Eliquis discussed with its complications. Intracranial bleed and GI bleed discussed. No non steroidal or antiinflammatory. The patient's echo showed normal LV contractility, borderline LVH, enlarged LA cavity which is close to 5 cm. She agreed to go to Dr. Solis for further evaluation. Amiodarone side effects discussed with thyroid problems, pulmonary fibrosis, et cetera. Lanoxin will be given 0.125 along with Cardizem 90 mg twice a day. Rate is controlled to the point where it is now 90 to 100 per minute, still fast. CONDITION: Stable. PROGNOSIS: Guarded. The patient is noncompliant. Advised to take her medications regularly. TIME SPENT: More than 30 minutes. Plan and coordination of the patient's care discussed in the presence of nurse. DON
--- NOTE | 2018-07-08 12:45 | PN ---
CODING FOR BILLING 07/01/18 ADMISSION DAY - LEVEL 5 07/02/18 INTERMEDIATE 07/03/18 INTERMEDIATE 07/04/18 DISCHARGE MTDD
--- NOTE | 2018-07-08 14:53 | CM.DICTOOL ---
ADMISSION: 07/01/18 11:16 DISCHARGE: 07/04/18 FINAL DIAGNOSIS AFIB/AFLUTTER WITH RAPID HEART RATE DIZZINESS COPD HISTORY OF: CVA CATARACT SURGERY - DATE UNKNOWN DYSLIPIDEMIA ULCERS GERD S/P HYSTERECTOMY - DATE UNKNOWN SPINE FRACTURE S/P BACK SURGERY 2016 HYPOGLYCEMIA ANXIETY FORMER SMOKER ANEMIA S/P CHOLECYSTECTOMY - DATE UNKNOWN S/P BLADDER SLING - DATE UNKNOWN LAST VITALS Temp Pulse Resp BP Pulse Ox 99 F 115 H 18 116/64 92 L 07/04/18 04:34 07/04/18 08:00 07/04/18 04:34 07/04/18 04:34 07/04/18 04:34 TAKE THESE MEDICATIONS AT HOME Acetaminophen (Tylenol) 650 mg PO Q4H PRN PRN Reason: Headache Alprazolam (Xanax) 0.5 mg PO TID [facility] Last Admin: 07/04/18 09:47 Dose: 0.5 mg Amiodarone HCl (Cordarone) 200 mg PO Q12HR [facility] Last Admin: 07/04/18 05:55 Dose: 200 mg Apixaban (Eliquis) 5 mg PO BID [facility] Last Admin: 07/04/18 09:47 Dose: 5 mg Diltiazem HCl (Cardizem) 90 mg PO Q12HR [facility] Last Admin: 07/04/18 09:47 Dose: 30 mg Docusate Sodium (Colace) 100 mg PO BEDTIME [facility] Last Admin: 07/03/18 20:53 Dose: 100 mg Gabapentin (Neurontin) 300 mg PO BID [facility] Last Admin: 07/04/18 09:46 Dose: 300 mg Methocarbamol (Robaxin) 750 mg PO TID [facility] Last Admin: 07/04/18 09:56 Dose: 750 mg Oxycodone/Acetaminophen (Percocet 5-325) 1 tab PO TID [facility] Last Admin: 07/04/18 09:46 Dose: 1 tab Pantoprazole Sodium (Protonix) 40 mg PO QDAC [facility] Last Admin: 07/04/18 05:55 Dose: 40 mg Potassium Chloride (K-Dur) 10 meq PO DAILYWM [facility] Last Admin: 07/04/18 09:46 Dose: 20 meq Simvastatin (Zocor) 40 mg PO BEDTIME [facility] Last Admin: 07/03/18 20:54 Dose: 40 mg ALLERGIES codeine Adverse Reaction (Verified 09/11/16 18:30) ketorolac [From Toradol] Adverse Reaction (Verified 12/20/17 07:02) Discontinued Medications Dexamethasone Sodium Phosphate (Decadron 4 Mg/Ml Sdv) 4 mg IM ONCE STA Stop: 07/01/18 12:03 Last Admin: 07/01/18 13:51 Dose: 4 mg Digoxin (Lanoxin) 250 mcg IVP ONCE STA Stop: 07/01/18 14:30 Last Admin: 07/01/18 14:42 Dose: 250 mcg Digoxin (Lanoxin) 250 mcg IVP ONCE STA Stop: 07/01/18 16:06 Last Admin: 07/01/18 16:29 Dose: 250 mcg Digoxin (Lanoxin) 250 mcg IVP ONCE STA Stop: 07/02/18 11:30 Last Admin: 07/02/18 11:56 Dose: 250 mcg Digoxin (Lanoxin) 250 mcg IVP ONCE STA Stop: 07/03/18 09:34 Last Admin: 07/03/18 10:16 Dose: 250 mcg Diltiazem HCl (Cardizem) 60 mg PO ONCE ONE Stop: 07/01/18 16:07 Last Admin: 07/01/18 16:29 Dose: 60 mg Diltiazem HCl (Cardizem) 30 mg PO ONCE ONE Stop: 07/02/18 11:32 Last Admin: 07/02/18 11:44 Dose: 30 mg Furosemide (Lasix) 20 mg IVP ONCE STA Stop: 07/01/18 15:53 Last Admin: 07/01/18 16:29 Dose: 20 mg Potassium Chloride (K-Dur) 40 meq PO BIDWM [facility] Last Admin: 07/03/18 08:39 Dose: 40 meq Potassium Chloride (K-Dur) 40 meq PO QID [facility] Stop: 07/04/18 00:01 Last Admin: 07/03/18 20:53 Dose: 40 meq NEW PRESCRIPTIONS: NEW MEDICATIONS: 1. AMIODARONE 200MG TAKE 1 TABLET 2 TIMES A DAY 2. CARDIZEM 90 MG TAKE 1 TABLET 2 TIMES A DAY 3. LANOXIN 0.125MG TAKE 1 TABLET DAILY 4. ELIQUIS 5MG TAKE 1 TABLET 2 TIMES A DAY SMOKING: N/A DISEASE SPECIFIC EDUCATION: A-FIB/A-FLUTTER ELIQUIS - RISKS/BENEFITS AND PRECAUTIONS CARDIZEM LANOXIN FOLLOW UP APPOINTMENT SAFETY WHILE DIZZY LAB REVIEW: 07/04/18 04:30 07/04/18 04:30 07/04/18 04:30: Digoxin 1.70 07/04/18 04:30: Sodium 136.9, Potassium 4.32, Chloride 103.1, Carbon Dioxide 28.9, Anion Gap 9.22, BUN 13.9, Creatinine 1.15, Estimated GFR (MDRD) 45.00, BUN /Creatinine Ratio 12.08, Glucose 91.7, Calcium 8.61, Total Bilirubin 0.45, AST 45.6 H, ALT 27.4, Alkaline Phosphatase 54.6, Total Protein 6.87, Albumin 3.62, Globulin 3.25, Albumin/Globulin Ratio 1.11 07/04/18 04:30: WBC 7.77, RBC 3.49 L, Hgb 10.9 L, Hct 34.5 L, MCV 98.9, MCH 31.2 H, MCHC 31.6 L, RDW Coeff of Alverto 14.1, Plt Count 267, Immature Gran % (Auto ) 0.3, Neut % (Auto) 51.0, Lymph % (Auto) 30.1, Rogers % (Auto) 11.7 H, Eos % ( Auto) 6.0, Baso % (Auto) 0.9, Immature Gran # (Auto) 0.0, Neut # (Auto) 4.0, Lymph # (Auto) 2.3, Rogers # (Auto) 0.9, Eos # (Auto) 0.5, Baso # (Auto) 0.1 PLAN: DISCHARGE HOME TODAY. 07/04/18 CONTINUE HOME MEDICATIONS PER NURSING SHEETS WITH NO CHANGES. NEW MEDICATIONS: 1. AMIODARONE 200MG TAKE 1 TABLET 2 TIMES A DAY 2. CARDIZEM 90 MG TAKE 1 TABLET 2 TIMES A DAY 3. LANOXIN 0.125MG TAKE 1 TABLET DAILY 4. ELIQUIS 5MG TAKE 1 TABLET 2 TIMES A DAY DIET TOLERATED ACTIVITY GRADUALLY RESUME ACTIVITY. FOLLOW UP WITH DR. LE ON WednesdayJune AT 1130AM. PATIENT IS A DNR. SITTING UP IN BED. ALERT AND ORIENTED X 4. DR. LE AND Ravinder PLUMMER PROFESSIONAL DEVELOPMENT DIRECTOR INTO SEE PATIENT. PATIENT STATES FEELING BETTER. DENIES ANY FURTHER C/O DIZZINESS. PLAN OF CARE DISCUSSED INCLUDING DISCHARGE, MEDICATIONS AND FOLLOW UP. PATIENT EDUCATION DONE CONCERNING MEDICATIONS, ELIQUIS THERAPY, AFIB/AFLUTTER. PATIENT VERBALIZES UNDERSTANDING AND AGREEMENT. APPETITE IS GOOD. VITAL SIGNS ARE STABLE. CONTINUES TO BE TACHY AT TIMES BUT HAS IMPROVED. HAS BEEN AFEBRILE. POX 92% ON O2 AT 2L/C. HEART TONES ARE IRREGULAR WITH TELEMETRY REVEALING AFIB. NO C /O PAIN OR DISCOMFORT. LUNGS ARE CLEAR WITH DIMINISHED BREATH SOUNDS. NO COUGH OR DYSPNEA NOTED. ABDOMEN IS SOFT, NON-TENDER WITH BOWEL SOUNDS POSITIVE IN ALL 4 QUADS. PEDAL PULSES POSITIVE WITHOUT EDEMA. HAS SALINE LOCK IN RIGHT FOREARM SITE IS CLEAR. IS INDEPENDENT WITH ACTIVITIES OF DAILY LIVING. DR. DANIA LE MD Ravinder PLUMMER APRN
--- NOTE | 2018-07-11 14:00 | DS ---
DATE OF SERVICE: 07/04/18 FINAL DIAGNOSIS: 1. Atrial fibrillation/atrial flutter with rapid heart rate 2. Dizziness 3. COPD 4. History of CVA 5. Cataract surgery-date unknown 6. Dyslipidemia 7. Ulcers 8. GERD 9. Status post hysterectomy-date unknown 10.Spine fracture 11.Status post back surgery 2016 12.Hypoglycemia 13.Anxiety 14.Former smoker 15.Anemia 16.Status post cholecystectomy- date unknown 17.Statu post bladder sling-date unknown LAST VITALS: Temperature 99, pulse 115, respiratory rate 18, blood pressure 116/64 and pulse ox 92%. DISCHARGE INSTRUCTIONS: Discharge home today 07/04/18. Continue home medications per nursing sheets with no changes. Followup with Dr. Carvajal on Wednesdayjuly 08 at 11:30am. The patient is DNR. MEDICATIONS AT DISCHARGE: Tylenol 650mg PO Q 4 hours PRN Xanax 0.5mg PO three times a day Cordarone 200mg PO Q 12 hours Eliquis 5mg PO twice a day Cardizem 90mg PO Q 12 hours Colace 100mg PO bedtime Neurontin 300mg PO twice a day Robaxin 750mg PO three times a day Percocet 5-325mg PO three times a day Protonix 40mg PO QDAC K-Dur 10meq PO daily Zocor 40mg PO bedtime ALLERGIES: Codeine Ketorolac DISCONTINUED MEDICATIONS: Decadron 4mg IM once Stat Lanoxin 250mcg IVP once Stat Lanoxin 250mg IVP once stat Lanoxin 250mcg IVP once stat Lanoxin 250mcg IVP once state Cardizem 60mg PO once Cardizem 30mg PO once Lasix 20mg IVP once stat K-Dur 40meq PO twice a day K-Dur 40meq PO four times a day NEW PRESCRIPTIONS: Amiodarone 200nmg take one tablet two times a day Cardizem 90mg take one tablet two times a day Lanoxin 0.125mg take one tablet daily Eliquis 5mg take one tablet two times a day DIET INSTRUCTIONS: As tolerated ACTIVITY: Gradually resume activity SMOKING: N/A DISEASE SPECIFIC EDUCATION: Atrial fibrillation/A-flutter Eliquis- Risks/benefits and precautions Cardizem Lanoxin Followup appointment Safety while dizzy HOSPITAL COURSE: 82 year old white female who presented to our office complaining of dizziness. She had a history of one episode of atrial fibrillation when she had been hospitalized previously a few months ago. She stated that she felt like her heart would speed up at times and then slow down. EKG in the office showed that she was having atrial flutter up into the 150's. She was a direct admit from our office. Shortly after being admitted her heart rate became up into the 180' s however she was asymptomatic and not having any chest pain. She had previously had an echo done in November. We started her on Eliquis 5mg PO twice a day as she went into atrial fibrillation she was given 0.25mg of IV Lanoxin on two separate occasions which did slow her heart rate down. She been regulated and has improved on 90mg of PO Cardizem alone with Amiodarone 200mg twice a day. She had not converted to sinus rhythm. However she has remained symptomatic cardiac enzymes have been normal. She has no exhibited any shortness of breath. She does have a history of chronic lung disease from being a heavy smoker. Echo was done prior to discharged and showed no clot and was essentially unchanged from previous. Her kidney function has remained normal. She will go home on Amiodarone 200mg twice a day along with Cardizem 90mg twice a day, Digoxin 0.25mg daily and Eliquis 5mg twice a day. The risks of intracranial and GI bleeding have been discussed in detail regarding Eliquis. Risk associated with atrial fibrillation and atrial flutter have been discussed in detail regarding risk of stroke. This has been discussed in detail with her family. We have advised her to quit smoking. We have made a referral to Dr. Solis an tugger operator for possible need and we will followup with her Wednesday in the office. Last Digoxin level was within normal limits. Her heart rate at night while she is sleeping has been 90-100 and this morning it was 115 at it's highest. She has not experienced any shortness of breath, no signs or symptoms and her dizziness has resolved. We will discharge her in stable condition. TIME SPENT: More than 60 minutes. MTDD
== END 2018-07-04 16:10 | disposition home or self-care (01) | DRG 149 ==
LOC: MEDSURG A 11:16
PROVIDERS: ADMIT Internal Medicine; ATTEND Internal Medicine
DX: R42 Dizziness and giddiness (principal); J44.9 Chronic obstructive pulmonary disease, unspecified; K21.9 Gastro-esophageal reflux disease without esophagitis; E78.5 Hyperlipidemia, unspecified; E16.2 Hypoglycemia, unspecified; F41.9 Anxiety disorder, unspecified; D64.9 Anemia, unspecified; J01.90 Acute sinusitis, unspecified; N18.2 Chronic kidney disease, stage 2 (mild); M81.0 Age-related osteoporosis without current pathological fracture; M19.90 Unspecified osteoarthritis, unspecified site; G25.81 Restless legs syndrome
CPT/HCPCS: 36415; 80053; 80162; 81001; 82550; 82553; 82803; 84439; 84443; 84484; 85025; 93005; 93010; 94640; 99223; 99232; 99239

== ENCOUNTER 2018-07-06 07:57 | Outpatient (CLI) | payer OTHER ==
--- NOTE | 2018-07-06 14:31 | MRI ---
EXAM: MRI brain without and with IV contrast. DATE: 07/06/2018. HISTORY: Dizziness. Unsteady gait. TECHNIQUE: Sagittal T1W pre and postcontrast, axial T2W, axial FLAIR, axial T1W pre and postcontrast , axial DWI, coronal T1W postcontrast, and coronal T2W GRE sequences of the brain were obtained using 1.5 Rosina magnet. CONTRAST: Dotarem - 13 ml IV. COMPARISON: CT head 25 September 2009. FINDINGS: The ventricles, cisterns, sulci and subarachnoid spaces are commensurately enlarged due to involutional change. No midline shift, mass effect or abnormal extra-axial fluid collection is appa rent. No acute infarct, hemorrhage or enhancing neoplasm is identified. No abnormal contrast enhanc ement is identified in the brain, meninges or dura. Narrow/small, confluent rim of T2W/FLAIR hyperin tensity is observed in the white matter abutting each lateral ventricle. Small number of to to 4 mm diameter, T2W/FLAIR bright, non-enhancing foci are scattered in the reese radiata, centrum semiovale and subcortical white matter bilaterally. The griffiths - white matter differentiation is normal. A few 1-2 mm diameter, T2W/FLAIR bright, non-enhancing foci are demonstrated in the mukul. No migration or diverticulation abnormality is identified. The amygdala, hippocampus, and parahippocampal gyri are similar bilaterally. The 7th/8th cranial nerve complexes, cerebellopontine angles, and visible cervi ozzy spinal cord are normal. There is no cerebellar tonsillar ectopia. The pituitary gland is normal in size and signal. Corpus callosum is normal in size and configuration. Flow voids are present in the major intracranial arteries and in the dural venous sinuses. No aneurysm, AVM or dural venous s inus thrombosis is apparent. Appearance of the lens of each eye suggests prior cataract surgery. Mi nimal fluid in each optic nerve sheath is likely normal variation. No other orbit abnormality is lester ntified. A few inferior right mastoid air cells have T2W bright, T1W intermediate signal without abn ormal enhancement.. There is no acute sinusitis. No neck mass or lymphadenopathy is detected. No c alvarial neoplasm or acute fracture is evident. IMPRESSIONS: 1. No acute infarct, hemorrhage, enhancing neoplasm or hydrocephalus. 2. Mild cerebral and minor cerebellar leukomalacia - likely due to small vessel disease or chronic h ypertensive encephalopathy. 3. Mild cerebral involutional change.
== END 2018-07-06 07:58 | disposition home or self-care (01) ==
LOC: RAD 07:57
PROVIDERS: ATTEND Internal Medicine
DX: R42 Dizziness and giddiness (principal)

== ENCOUNTER 2018-07-18 20:40 | Emergency (ER) | payer OTHER ==
[2018-07-18 20:51] VITALS: BP 147/84; TEMP 99.5; BMI 25.3
--- NOTE | 2018-07-18 21:01 | ED.PDOC ---
General ED Provider: Dr. RAH SPEARS MD Chief Complaint: Back Pain Stated Complaint: thoracic back pain Time Seen by Physician: 20:54 Mode of Arrival: Walk-In Information Source: Patient Exam Limitations: No limitations Primary Care Provider: DANIA LE Nursing and Triage Documentation Reviewed and Agree: Yes Does patient meet sepsis criteria?: No If yes, has appropriate treatment been initiated?: Yes System Inflammatory Response Syndrome: Not Applicable Sepsis Protocol: For patient's 13 years and over: Temp is 96.8 and below OR 101 and greater Pulse >90 BPM Resp >20/minute Acutely Altered Mental Status Are patient's symptoms suggestive of a new infection, such as: -Pneumonia -Skin, Soft Tissue -Endocarditis -UTI -Bone, Joint Infection -Implantable Device -Acute Abdominal Infection -Wound Infection -Meningitis -Blood Stream Catheter Infection -Unknown Review of Systems - Review Of Systems Constitutional: Reports: No symptoms Eyes: Reports: No symptoms Ears, Nose, Mouth, Throat: Reports: No symptoms Respiratory: Reports: No symptoms Cardiac: Reports: No symptoms GI: Reports: No symptoms : Reports: No symptoms Musculoskeletal: Reports: Back pain (thoracic) Skin: Reports: No symptoms Neurological: Reports: No symptoms Endocrine: Reports: No symptoms Hematologic/Lymphatic: Reports: No symptoms All Other Systems: Reviewed and Negative Past Medical History - Past Medical History Previously Healthy: Yes Endocrine: Reports: None, Dyslipidemia Cardiovascular: Reports: Hypertension Respiratory: Reports: None Hematological: Reports: None Gastrointestinal: Reports: None Genitourinary: Reports: None Neuro/Psych: Reports: None Musculoskeletal: Reports: Back Pain Cancer: Reports: None Last Menstrual Period: HYSTERECTOMY - Surgical History General Surgical History: Reports: Unknown - Family History Family History: Reports: Unknown - Social History Smoking Status: Former smoker Hx Substance Use: No Alcohol Screening: None - Immunizations Tetanus Shot up to Date: Yes Physical Exam - Physical Exam Appearance: Well-appearing, No pain distress, Well-nourished Ill-appearing: None Pain Distress: Mild Eyes: GRIS, EOMI, Conjunctiva clear ENT: Ears normal, Nose normal, Oropharynx normal Neck: Supple Respiratory: Airway patent Cardiovascular: Pulses normal, No rub, No murmur, Irregular rhythm GI/: Soft, Nontender, No masses, Bowel sounds normal, No Organomegaly Musculoskeletal: Normal strength (reproducible on palpation right thoracic posteiot T-7 level), ROM intact, No edema, No calf tenderness Skin: Warm, Dry, Normal color Neurological: Sensation intact, Motor intact, Reflexes intact, Cranial nerves intact, Alert, Oriented Psychiatric: Affect appropriate, Mood appropriate Critical Care Note - Critical Care Note Total Time (mins): 0 Course - Course Orders, Labs, Meds: Orders Category Date Time Status Carisoprodol [Soma] MEDS 07/18/18 21:02 Discontinued 350 mg PO ONCE STA CXR [CHEST, 2 VIEWS PA & LAT] Stat RADS 07/18/18 21:08 Completed Medications Discontinued Medications Generic Name Dose Route Start Last Admin Trade Name Freq PRN Reason Stop Dose Admin Carisoprodol 350 mg 07/18/18 21:02 07/18/18 21:22 Soma PO 07/18/18 21:03 350 mg ONCE STA Administration Vital Signs: Temp Pulse Resp BP Pulse Ox 07/18/18 20:40 99.5 F 90 20 147/84 H 95 Departure - Departure Time of Disposition: 22:30 Disposition: HOME SELF-CARE Discharge Problem: Acute thoracic myofascial strain Instructions: Thoracic Back Strain (ED) Condition: Good Pt referred to PMD for follow-up: Yes IPMP verified?: No Additional Instructions: heat therapy at home Allergies/Adverse Reactions: Allergies codeine Adverse Reaction (Verified 07/18/18 20:45) ketorolac [From Toradol] Adverse Reaction (Verified 07/18/18 20:45) verified 12/20/17 Home Medications: Ambulatory Orders Alprazolam [Xanax] 0.5 mg PO TID 06/06/13 Cholecalciferol (Vitamin D3) [Vitamin D] 1 tab PO DAILY 06/06/13 Meclizine HCl [Antivert] 1 tab PO TID 06/06/13 Multivitamin 1 tab PO BEDTIME 06/06/13 Potassium Chloride [Klor-Con 10] 1 tab PO BEDTIME 06/06/13 Calcium Carbonate/Vitamin D3 [Calcium 600 + D Tablet] 1 each PO DAILY 03/16/15 Gabapentin [Neurontin] 300 mg PO BID 03/16/15 Methocarbamol [Robaxin-750] 750 mg PO TID 05/19/17 Iron Ps Complex/B12/Folic Acid [Iferex 150 Forte Capsule] 150 mg PO DAILY Acetaminophen [Acetaminophen ER] 2 tab PO BEDTIME PRN 07/01/18 Denosumab [Prolia] 60 mg SQ PRN PRN 07/01/18 Docusate Sodium [Colace] 1 cap PO BEDTIME 07/01/18 Oxycodone-Acetaminophen 5-325 [Percocet 5-325] 1 tab PO TID 07/01/18 Pantoprazole Sodium [Protonix] 40 mg PO QDAC 07/01/18 Simvastatin 40 mg PO BEDTIME 07/01/18 Amiodarone HCl 200 mg PO BID #60 tablet 07/04/18 Apixaban [Eliquis] 5 mg PO BID #60 tablet 07/04/18 Digoxin [Lanoxin] 125 mcg PO DAILY #30 tablet 07/04/18 Diltiazem HCl [Cardizem] 90 mg PO BID #60 tablet 07/04/18 Methocarbamol [Robaxin-750] 750 mg PO TID #45 tablet 07/04/18 Disposition Discussed With: Patient, Family
[2018-07-18] MEDS ORDERED: SOMA PO STA (21:02)
--- NOTE | 2018-07-18 21:44 | DI ---
EXAM: Chest PA and lateral HISTORY: Thoracic pain FINDINGS: The left hemidiaphragm remains elevated since 07/01/2018. Minimal bibasilar opacities are s uggested. The aorta is atherosclerotic. The heart is enlarged. Previous posterior thoracolumbar spin al fusion has been performed in the past. There is a chronic-appearing L1 compression fracture. 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 No pneumothorax or pleural effusions are detected. IMPRESSION: Bibasilar atelectasis and/or pneumonia. ASCVD and cardiomegaly. Chronic L1 fracture with posterior stabilization.
== END 2018-07-18 22:30 | disposition home or self-care (01) ==
LOC: ED 20:40
DX: M54.6 Pain in thoracic spine (principal); S29.012A Strain of muscle and tendon of back wall of thorax, initial encounter
CPT/HCPCS: 99283

== ENCOUNTER 2018-11-10 07:31 | Outpatient (CLI) ==
[2018-11-10 07:45] VITALS: BP 95/60; TEMP 97.5
[2018-11-10] MEDS: PROLIA SUBCUT STA (08:10)
== END 2018-11-10 07:32 | disposition home or self-care (01) ==
LOC: OPMED 07:31
PROVIDERS: ATTEND Internal Medicine
DX: M81.0 Age-related osteoporosis without current pathological fracture (principal)
CPT/HCPCS: 96372